=== PATIENT | female | born 1990 | race Caucasian/White ===

== ENCOUNTER 2018-07-17 08:32 | Emergency (ER) | payer MEDICAID ==
[2018-07-17 09:14] LABS: PLATELET COUNT 230 10^3/uL (150-400)
--- NOTE | 2018-07-17 09:17 | EDPHY ---
H & P Stated Complaint: sezure Time Seen by Provider: 07/17/18 08:55 HPI/ROS: CHIEF COMPLAINT: Possible seizure HISTORY OF PRESENT ILLNESS: 27-year-old female, sober from alcohol times 14 days, arrives via ambulance after a possible seizure. She was at a store, started feel lightheaded, sat down in a chair and then remembers waking his chair with someone standing over her. She denies trauma or fall. Denies head injury. She is complaining of right lateral tongue soreness and headache which did not precede her symptoms today. No history of seizure disorder. She does have prior history of alcohol withdrawal seizure which have typically occurred with hours to days of stopping alcohol use. Denies: Incontinence to stool urine, abdominal pain or trauma, back pain or trauma, peripheral paresthesia, weakness, numbness, hallucination REVIEW OF SYSTEMS: 10 systems reviewed and negative with the exception of the elements mentioned in the history of present illness PAST MEDICAL/SURGICAL HISTORY: no anticoagulant use, no relevant medical/ surgical history SOCIAL HISTORY: Sober from alcohol times 14 days PHYSICAL EXAM 1) GENERAL: Well-developed, well-nourished, alert and oriented. Appears to be in no acute distress. Answering questions appropriately. Smiling, pleasant 2) HEAD: Normocephalic, atraumatic 3) HEENT: Pupils equal, round, reactive to light bilaterally. Negative Horners. Nasopharynx, oropharynx, clear. No deformity or angulation of nose. No septal hematoma. No rhinorrhea. No oral trauma. Right lateral tongue abrasion. Ears bilaterally with normal tympanic membranes. No hemotympanum. No fluid or blood in the external auditory canal. No raccoon eyes. No Belvins sign. Teeth are normally aligned with no gross malocclusion, TMJ bilaterally nontender, facial bones nontender including the zygomatic arch, maxilla mandible. 4) NECK: No cervical collar is on. Posterior cervical spine is nontender, no stepoff, no effusion. Full range of motion which does not elicit any midline cervical spine pain, no posterior midline tenderness, no step-off. 5) LUNGS: Clear to auscultation bilaterally, no wheezes, no rhonchi, no retractions. No obvious signs of trauma. No chest wall pain. No flaring, no grunting. Moving symmetrically. No crepitus. 6) HEART: [Regular rate and rhythm, 7) ABDOMEN: No guarding, no rebound, no focal tenderness, no peritoneal signs, no signs of trauma, no ecchymosis 8) MUSCULOSKELETAL: Moving all extremities, no focal areas of tenderness, no obvious trauma. 9) BACK: No midline vertebral tenderness, no fluctuance, no step-off, no obvious trauma, no visual or palpable abnormality. 10) SKIN: No laceration. No abrasion 11) NEURO: Awake, alert, and oriented to person, place and time. Answers questions appropriately. There were no obvious focal neurologic abnormalities. No cerebellar dysfunction. Cranial nerves 2 through to 12 intact. Normal steady gait. Upper and lower extremities bilaterally with strength 5 / 5, reflexes 2+. DIFFERENTIAL DIAGNOSIS: In no particular order including but not limited to syncope, alcohol withdrawal seizure, delirium tremens, seizure disorder - Personal History Current Tetanus/Diphtheria Vaccine: Unsure Current Tetanus Diphtheria and Acellular Pertussis (TDAP): Unsure - Medical/Surgical History Hx Asthma: No Hx Chronic Respiratory Disease: No Hx Diabetes: No Hx Cardiac Disease: No Hx Renal Disease: No Hx Cirrhosis: No Hx Alcoholism: Yes Hx HIV/AIDS: No Hx Splenectomy or Spleen Trauma: No Other PMH: ETOH abuse - Social History Smoking Status: Never smoked Constitutional: Initial Vital Signs Temperature (C) 37.1 C 07/17/18 08:32 Heart Rate 88 07/17/18 08:32 Respiratory Rate 16 07/17/18 08:32 Blood Pressure 138/76 H 07/17/18 08:32 O2 Sat (%) 97 07/17/18 08:32 O2 Delivery Mode Room Air Allergies/Adverse Reactions: No Known Allergies Allergy (Unverified 07/17/18 08:42) Home Medications: Medication Instructions Recorded NK [No Known Home Meds] 07/17/18 Medical Decision Making - Diagnostics Imaging Results: Imaging Impressions Head CT 07/17/18 09:04 Impression: No acute intracranial process. Findings and recommendations discussed with Noemi Thomas at 955 hour, 07/17. Images reviewed myself ED Course/Re-evaluation: 10:02 a.m.: Patient was re-evaluated with serial exams. At this time I have re -examined the patient, she is sitting upright, pleasant, calm, smiling. He remains with a nonfocal neurologic exam. Discussed her imaging results interpreted by staff radiologist showing no intracranial hemorrhage. I reviewed the images myself. At this time I think the patient can be discharged home. Doubt delirium tremens. Patient has been informed that she may have had a seizure, she may have syncopal episode. Given my usual and customary seizure precautions instructions. Recommend close follow-up at the [facility]. Patient feels comfortable being discharged. All questions and concerns addressed by myself. Patient given my usual and customary discharge precautions and instructions regarding their clinical impression. Care of patient under supervision of secondary supervising physician Dr Janet Mckenzie with whom I discussed case. - Data Points Laboratory Results: Laboratory Results 07/17/18 08:47 07/17/18 08:47 07/17/18 07/17/18 07/17/18 08:47 08:47 08:47 WBC RBC Hgb Hct MCV MCH MCHC RDW Plt Count MPV Neut % (Auto) Lymph % (Auto) Mccormick % (Auto) Eos % (Auto) Baso % (Auto) Nucleat RBC Rel Count Absolute Neuts (auto) Absolute Lymphs (auto) Absolute Monos (auto) Absolute Eos (auto) Absolute Basos (auto) Absolute Nucleated RBC Immature Gran % Immature Gran # Sodium 138 mEq/L mEq/L (135-145) Potassium 4.3 mEq/L mEq/L (3.5-5.2) Chloride 103 mEq/L mEq/L (97-110) Carbon Dioxide 23 mEq/l mEq/l (22-31) Anion Gap 12 mEq/L mEq/L (6-14) BUN 13 mg/dL mg/dL (7-23) Creatinine 0.8 mg/dL mg/dL (0.6-1.0) Estimated GFR > 60 Glucose 77 mg/dL mg/dL (70-100) Calcium 9.9 mg/dL mg/dL (8.5-10.4) Beta HCG, Qual NEGATIVE Ethyl Alcohol < 10 mg/dL mg/dL (0-10) 07/17/18 08:47 WBC 4.79 10^3/uL 10^3/uL (3.80-9.50) RBC 4.36 10^6/uL 10^6/uL (4.18-5.33) Hgb 13.9 g/dL g/dL (12.6-16.3) Hct 41.3 % % (38.0-47.0) MCV 94.7 fL fL (81.5-99.8) MCH 31.9 pg pg (27.9-34.1) MCHC 33.7 g/dL g/dL (32.4-36.7) RDW 15.5 % H % (11.5-15.2) Plt Count 230 10^3/uL 10^3/uL (150-400) MPV 10.1 fL fL (8.7-11.7) Neut % (Auto) 55.4 % % (39.3-74.2) Lymph % (Auto) 31.1 % % (15.0-45.0) Mccormick % (Auto) 11.3 % % (4.5-13.0) Eos % (Auto) 1.0 % % (0.6-7.6) Baso % (Auto) 0.8 % % (0.3-1.7) Nucleat RBC Rel Count 0.0 % % (0.0-0.2) Absolute Neuts (auto) 2.65 10^3/uL 10^3/uL (1.70-6.50) Absolute Lymphs (auto) 1.49 10^3/uL 10^3/uL (1.00-3.00) Absolute Monos (auto) 0.54 10^3/uL 10^3/uL (0.30-0.80) Absolute Eos (auto) 0.05 10^3/uL 10^3/uL (0.03-0.40) Absolute Basos (auto) 0.04 10^3/uL 10^3/uL (0.02-0.10) Absolute Nucleated RBC 0.00 10^3/uL 10^3/uL (0-0.01) Immature Gran % 0.4 % % (0.0-1.1) Immature Gran # 0.02 10^3/uL 10^3/uL (0.00-0.10) Sodium Potassium Chloride Carbon Dioxide Anion Gap BUN Creatinine Estimated GFR Glucose Calcium Beta HCG, Qual Ethyl Alcohol Departure - Departure Disposition: Home, Routine, Self-Care Clinical Impression: Possible seizure Condition: Good Instructions: New-Onset Seizure in Adults (ED) Additional Instructions: Congratulations on your sobriety! You may have had a seizure. Until your cleared by the your neurologist or primary care provider do not: Drive, swim alone, climb to heights, operate machinery. Call 911 if you have a seizure, you feel faint, you have a headache, if you have nausea or vomiting or any other symptoms that concern you. Referrals: [facility],. [Clinic] - 2-3 days, call for appt.
[2018-07-17 10:30] VITALS: BP 126/69
--- NOTE | 2018-07-17 14:57 | CPEKG ---
Test Reason : OPEN Blood Pressure : / mmHG Vent. Rate : 060 BPM Atrial Rate : 059 BPM P-R Int : 149 ms QRS Dur : 090 ms QT Int : 397 ms P-R-T Axes : 046 058 057 degrees QTc Int : 397 ms Sinus rhythm Confirmed by Janet Piedra ([id number]) on 07/17/2018 2:57:24 PM Referred By: JANET PIEDRA Confirmed By:Janet Piedra
== END 2018-07-17 10:29 | disposition home or self-care (01) ==
DX: R56.9 Unspecified convulsions (principal)
CPT/HCPCS: G0480